=== PATIENT | female | born 1965 | race Caucasian/White ===

== ENCOUNTER → 2018-10-16 | Outpatient (CLI) | payer MEDICARE ==
--- NOTE | 2018-10-22 09:38 | MM ---
Reason for exam: screening (asymptomatic). Last mammogram was performed 2 years and 10 months ago. History: Patient is postmenopausal and is nulliparous. Physical Findings: A clinical breast exam by your physician is recommended on an annual basis and results should be correlated with mammographic findings. MG 3D Screening Mammo W/Cad Bilateral CC and MLO view(s) were taken. Prior study comparison: December 10, 2015, bilateral MG screening mammo w CAD. April 16, 2015, right breast MG diagnostic mammo RT w CAD. There are scattered fibroglandular densities. No significant changes when compared with prior studies. ASSESSMENT: Benign, BI-RAD 2 RECOMMENDATION: Routine screening mammogram of both breasts in 1 year.
== END ==
LOC: RADMAMWWP 09:47
PROVIDERS: ATTEND Pediatrics
DX: Z12.31 Encounter for screening mammogram for malignant neoplasm of breast (principal)
CPT/HCPCS: 77063; 77067

== ENCOUNTER → 2019-10-31 | Outpatient (CLI) | payer MEDICARE ==
--- NOTE | 2019-11-01 11:37 | MM ---
Reason for exam: screening (asymptomatic). Last mammogram was performed 1 year ago. History: Patient is postmenopausal and is nulliparous. Physical Findings: A clinical breast exam by your physician is recommended on an annual basis and results should be correlated with mammographic findings. MG 3D Screening Mammo W/Cad Bilateral CC, MLO, and XCCL view(s) were taken. Prior study comparison: October 16, 2018, bilateral MG 3d screening mammo w/cad. December 10, 2015, bilateral MG screening mammo w CAD. There are scattered fibroglandular densities. There is a subtle nodularity with two round calcifications in the left breast slightly upper outer quadrant anterior middle position. This finding is changed when compared with previous exams. ASSESSMENT: Incomplete: need additional imaging evaluation, BI-RAD 0 RECOMMENDATION: Special view mammogram of the left breast. If lesion persists on supplemental views, image directed ultrasound is recommended. [facility] will attempt to contact patient to return for supplemental views and ultrasound if indicated.
== END | disposition home or self-care (01) ==
LOC: RADMAMWWP 13:30
PROVIDERS: ATTEND Internal Medicine
DX: Z12.31 Encounter for screening mammogram for malignant neoplasm of breast (principal)
CPT/HCPCS: 77063; 77067

== ENCOUNTER → 2019-11-14 | Outpatient (CLI) | payer MEDICARE ==
--- NOTE | 2019-11-15 09:22 | MM ---
Reason for exam: additional evaluation requested from abnormal screening. Last mammogram was performed less than 1 month ago. History: Patient is postmenopausal and is nulliparous. Physical Findings: Nurse did not find any significant physical abnormalities on exam. MG 3D Work Up W/Cad LT Spot compression CC, spot compression MLO, and LM view(s) were taken of the left breast. Prior study comparison: October 31, 2019, bilateral MG 3d screening mammo w/cad. October 16, 2018, bilateral MG 3d screening mammo w/cad. The breast tissue is heterogeneously dense. This may lower the sensitivity of mammography. There are two left calcifications noted. No suspicious groups. The previously seen abnormality resolves on additional views and appears as fibroglandular tissue compatible with summation. These results were verbally communicated with the patient and result sheet given to the patient on 11/14/19. ASSESSMENT: Benign, BI-RAD 2 RECOMMENDATION: Return to routine screening mammogram schedule for both breasts.
== END | disposition home or self-care (01) ==
LOC: RADMAMWWP 13:39
PROVIDERS: ATTEND Internal Medicine
DX: R92.8 Other abnormal and inconclusive findings on diagnostic imaging of breast (principal)
CPT/HCPCS: 77065; G0279; 77061

== ENCOUNTER → 2020-06-18 | Outpatient (CLI) | payer MEDICARE | END | disposition home or self-care (01) | LOC: LABWHC1 09:23 | PROVIDERS: ATTEND Internal Medicine | DX: Z11.59 Encounter for screening for other viral diseases (principal) | CPT/HCPCS: U0003; C9803 ==

== ENCOUNTER → 2020-06-29 | Outpatient (CLI) | payer MEDICARE | END | disposition home or self-care (01) | LOC: LABWHC1 11:34 | PROVIDERS: ATTEND Internal Medicine | DX: Z11.59 Encounter for screening for other viral diseases (principal) | CPT/HCPCS: U0003; C9803 ==

== ENCOUNTER 2020-08-16 14:37 | Emergency (ER) | payer MEDICARE ==
[2020-08-16 14:43] VITALS: BP 142/82; PULSE 65; RESP 18; TEMP 98.9
--- NOTE | 2020-08-16 15:13 | ED ---
General Adult HPI - General Chief complaint: Fall Stated complaint: right Foot injury Time Seen by Provider: 08/16/20 14:48 Source: patient, RN notes reviewed, old records reviewed Mode of arrival: ambulatory Limitations: no limitations - History of Present Illness Initial comments: 55-year-old female presents status post trip and fall with right foot and ankle pain. Patient states she was going down steps, twisted her ankle inward and has pain in the lateral ankle and top of her foot. She denies any other injury, no head or neck trauma, no loss consciousness, no back pain. No additional extremity injury. She states this hurts when she puts weight on it otherwise her pain is minimal. - Related Data Allergies Allergy/AdvReac Type Severity Reaction Status Date / Time bacitracin Allergy Rash/Hives Verified 08/16/20 14:44 Milk Containing Products Allergy sinus Verified 08/16/20 14:44 [Dairy] congestion Penicillins Allergy immune to Verified 08/16/20 14:44 it soy AdvReac aggression Verified 08/16/20 14:43 Review of Systems ROS Statement: Those systems with pertinent positive or pertinent negative responses have been documented in the HPI. ROS Other: All systems not noted in ROS Statement are negative. Past Medical History Past Medical History: Thyroid Disorder History of Any Multi-Drug Resistant Organisms: None Reported Past Surgical History: Adenoidectomy, Tonsillectomy Additional Past Surgical History / Comment(s): eyelids lifted, Past Psychological History: PTSD Smoking Status: Never smoker Past Alcohol Use History: Rare Past Drug Use History: None Reported General Exam Limitations: no limitations General appearance: alert, in no apparent distress Head exam: Present: atraumatic, normocephalic Eye exam: Present: normal appearance, PERRL ENT exam: Present: normal exam Neck exam: Present: normal inspection. Absent: tenderness, meningismus Respiratory exam: Present: normal lung sounds bilaterally. Absent: respiratory distress, wheezes Cardiovascular Exam: Present: regular rate, normal rhythm GI/Abdominal exam: Present: soft. Absent: distended, tenderness, guarding Extremities exam: Present: other (Right lower extremity, there is some soft tissue swelling on the lateral ankle, just distal to the lateral malleolus and some soft tissue swelling in the mid foot. There is no ecchymosis, distal pulses are intact, normal cap refill) Course Vital Signs 08/16/20 14:39 Temperature 98.9 F Pulse Rate 65 Respiratory 18 Rate Blood Pressure 142/82 O2 Sat by Pulse 98 Oximetry Procedures - Orthopedic Splinting/Casting Injury #1 Side: right Lower Extremity Injury Location: ankle Lower Extremity Immobilizer: Adonay wrap Additional Comments: Patient is neurovascularly intact both before and after Adonay wrap Medical Decision Making - Medical Decision Making X-rays performed of both the right foot and right ankle. There is no acute bony abnormality. Patient is placed in an Adonay wrap for immobilization she will ice the extremity, take Tylenol and Motrin for pain. And elevate. She will follow- up with her primary care physician. If symptoms persist she may require repeat x-ray in one week. Disposition Clinical Impression: Ankle sprain, Sprain of foot, right Disposition: HOME SELF-CARE Condition: Good Instructions (If sedation given, give patient instructions): Ankle Sprain (ED), Foot Sprain (ED) Is patient prescribed a controlled substance at d/c from ED?: No Referrals: Dwayne Stone [Primary Care Provider] - 1-2 days Time of Disposition: 15:26
--- NOTE | 2020-08-16 15:34 | XR ---
Right ankle and right foot history: Trauma and pain 3 views of the right foot and 3 views of the right ankle There is mild soft tissue swelling present. Bone mineralization, joint spaces and alignment are maint ained. Enthesophyte present at the insertion of the Achilles tendon, there may be calcific tendinitis . IMPRESSION: No fracture or dislocation.
== END 2020-08-16 15:46 | disposition home or self-care (01) ==
LOC: MERGE 14:37 → EC 14:37
DX: S93.601A Unspecified sprain of right foot, initial encounter (principal); S93.401A Sprain of unspecified ligament of right ankle, initial encounter; Z88.2 Allergy status to sulfonamides; Z91.011 Allergy to milk products; Z88.0 Allergy status to penicillin; Z91.018 Allergy to other foods; W01.198A Fall on same level from slipping, tripping and stumbling with subsequent striking against other object, initial encounter; Y93.01 Activity, walking, marching and hiking
CPT/HCPCS: 99283

== ENCOUNTER → 2020-09-03 | Outpatient (CLI) | payer MEDICARE ==
--- NOTE | 2020-09-03 16:31 | XR ---
EXAMINATION TYPE: XR ankle complete RT, XR foot complete RT DATE OF EXAM: 09/03/2020 CLINICAL HISTORY: M25.571 TECHNIQUE: Frontal, lateral and oblique images of the right ankle and foot are obtained. COMPARISON: Right ankle and foot radiograph 08/16/2020 FINDINGS: There is no acute fracture/dislocation evident in the right foot or ankle. The ankle mort ise appears within normal limits. The joint spaces are preserved. Achilles enthesophyte. Normal osseo us mineralization. Overlying soft tissue is unremarkable. IMPRESSION: 1. No acute fracture or dislocation in the right ankle or foot. 2. Achilles enthesophyte.
== END | disposition home or self-care (01) ==
LOC: LABWHC1 15:07
PROVIDERS: ATTEND Nurse Practitioner Adult Health
DX: M77.51 Other enthesopathy of right foot and ankle (principal); Z01.818 Encounter for other preprocedural examination; Z20.828 Contact with and (suspected) exposure to other viral communicable diseases
CPT/HCPCS: 73610; 73630; U0003; C9803

== ENCOUNTER → 2020-10-16 | Outpatient (CLI) | payer MEDICARE | END | disposition home or self-care (01) | LOC: LABWHC1 13:12 | PROVIDERS: ATTEND Family Medicine | DX: Z03.818 Encounter for observation for suspected exposure to other biological agents ruled out (principal); R05 Cough; R19.8 Other specified symptoms and signs involving the digestive system and abdomen | CPT/HCPCS: U0003; C9803 ==

== ENCOUNTER → 2021-01-08 | Outpatient (CLI) | payer MEDICARE ==
--- NOTE | 2021-01-12 12:30 | MM ---
Reason for exam: screening (asymptomatic). Last mammogram was performed 1 year and 2 months ago. History: Patient is postmenopausal and is nulliparous. Physical Findings: A clinical breast exam by your physician is recommended on an annual basis and results should be correlated with mammographic findings. MG 3D Screening Mammo W/Cad Bilateral CC, MLO, and XCCL view(s) were taken. Prior study comparison: November 14, 2019, left breast MG 3d work up w/cad LT. October 31, 2019, bilateral MG 3d screening mammo w/cad. No significant changes when compared with prior studies. ASSESSMENT: Benign, BI-RAD 2 RECOMMENDATION: Routine screening mammogram of both breasts in 1 year.
== END | disposition home or self-care (01) ==
LOC: RADMAMWWP 08:07
PROVIDERS: ATTEND Family Medicine
DX: Z12.31 Encounter for screening mammogram for malignant neoplasm of breast (principal)
CPT/HCPCS: 77063; 77067

== ENCOUNTER → 2021-02-03 | Outpatient (CLI) | payer MEDICARE ==
--- NOTE | 2021-02-03 14:53 | XR ---
Right knee HISTORY: M 70.51 3 views of the right knee There is marginal spurring tricompartmentally. Joint spaces and alignment are maintained with excepti on of joint space loss at the patellofemoral joint. There is no fracture or dislocation. IMPRESSION: Osteoarthritis.
== END | disposition home or self-care (01) ==
LOC: RADXRMAIN 14:15
PROVIDERS: ATTEND Nurse Practitioner Adult Health
DX: M17.11 Unilateral primary osteoarthritis, right knee (principal)

== ENCOUNTER → 2022-01-28 | Outpatient (CLI) | payer MEDICARE ==
--- NOTE | 2022-01-28 12:21 | MM ---
Reason for exam: screening (asymptomatic). Last mammogram was performed 1 year and 1 month ago. History: Patient is postmenopausal and is nulliparous. Physical Findings: A clinical breast exam by your physician is recommended on an annual basis and results should be correlated with mammographic findings. MG 3D Screening Mammo W/Cad Bilateral CC and MLO view(s) were taken. Prior study comparison: January 08, 2021, bilateral MG 3d screening mammo w/cad. November 14, 2019, left breast MG 3d work up w/cad LT. There are scattered fibroglandular densities. Stable calcifications left breast. There is no discrete abnormality. No significant changes when compared with prior studies. ASSESSMENT: Benign, BI-RAD 2 RECOMMENDATION: Routine screening mammogram of both breasts in 1 year.
== END | disposition home or self-care (01) ==
LOC: RADMAMWWP 08:12
PROVIDERS: ATTEND Family Medicine
DX: Z12.31 Encounter for screening mammogram for malignant neoplasm of breast (principal)
CPT/HCPCS: 77063; 77067

== ENCOUNTER → 2024-03-26 | Outpatient (CLI) | payer MEDICARE ==
--- NOTE | 2024-03-27 09:51 | MM ---
Reason for Exam: Screening (asymptomatic). Last mammogram was performed 1 year(s) and 1 month(s) ago. Patient History: Menarche at age 10. Patient has no children. Postmenopausal. Risk Values: Alma 5 year model risk: 1.6%. NCI Lifetime model risk: 8.1%. Prior Study Comparison: 01/08/2021 Bilateral Screening Mammogram, [facility]. 01/28/2022 Bilateral Screening Mammogram, [facility]. 01/31/2023 Bilateral MG 3D screening mammo w/cad, [facility]. Tissue Density: The breasts are almost entirely fatty. Findings: Analyzed By CAD. Right breast: There is no suspicious group of microcalcifications or new suspicious mass. Left breast: There is no suspicious group of microcalcifications or new suspicious mass. Overall Assessment: Negative, BI-RAD 1 Management: Screening Mammogram of both breasts in [address] [facility] will attempt to contact patient to return for supplemental views and ultrasound if indicated. Patient should continue monthly self-breast exams. A clinical breast exam by your physician is recommended on an annual basis. This exam should not preclude additional follow-up of suspicious palpable abnormalities. Note on Alma scores and lifetime risk: 1. A Alma score greater than 3% is considered moderate risk. If this is the case, consider specialist referral to assess eligibility for a risk reducing agent. 2. If overall lifetime risk for the development of breast cancer is 20% or higher, the patient may qualify for future screening with alternating mammogram and breast MRI. Electronically signed and approved by: Lamonte Dinero DO
== END | disposition home or self-care (01) ==
LOC: RADMAMWWP 08:19
PROVIDERS: ATTEND Family Medicine
DX: Z12.31 Encounter for screening mammogram for malignant neoplasm of breast (principal); Z78.0 Asymptomatic menopausal state
CPT/HCPCS: 77063; 77067

== ENCOUNTER → 2025-06-27 | Outpatient (CLI) | payer MEDICARE ==
--- NOTE | 2025-06-27 17:14 | MM ---
Reason for Exam: Screening (asymptomatic). Last mammogram was performed 1 year(s) and 4 month(s) ago. Patient History: Menarche at age 10. Patient has no children. Postmenopausal. Risk Values: Alma 5 year model risk: 1.7%. NCI Lifetime model risk: 7.7%. Prior Study Comparison: 01/28/2022 Bilateral Screening Mammogram, [facility]. 01/31/2023 Bilateral MG 3D screening mammo w/cad, [facility]. 03/26/2024 Bilateral MG 3D screening mammo w/cad, [facility]. Tissue Density: There are scattered areas of fibroglandular density. Findings: Analyzed By CAD. Unchanged calcification central upper outer left breast middle depth. Unchanged asymmetric densities on the right. There is no suspicious group of microcalcifications or new suspicious mass in either breast. Overall Assessment: Benign, BI-RAD 2 Management: Screening Mammogram of both breasts in 1 year. Patient should continue monthly self-breast exams. A clinical breast exam by your physician is recommended on an annual basis. This exam should not preclude additional follow-up of suspicious palpable abnormalities. Note on Alma scores and lifetime risk: 1. A Alma score greater than 3% is considered moderate risk. If this is the case, consider specialist referral to assess eligibility for a risk reducing agent. 2. If overall lifetime risk for the development of breast cancer is 20% or higher, the patient may qualify for future screening with alternating mammogram and breast MRI. [facility], , 06/27/2025 5:10 PM. Electronically signed and approved by: Dakota Armenta M.D. Radiologist
== END | disposition home or self-care (01) ==
LOC: RADMAMWWP 08:31
PROVIDERS: ATTEND Nurse Practitioner Family
DX: Z12.31 Encounter for screening mammogram for malignant neoplasm of breast (principal); R92.323 Mammographic fibroglandular density, bilateral breasts; R92.1 Mammographic calcification found on diagnostic imaging of breast; Z78.0 Asymptomatic menopausal state
CPT/HCPCS: 77063; 77067